=== PATIENT | male | born 1955 | race Caucasian/White ===

== ENCOUNTER 2023-09-07 07:34 | Day surgery (SDC) | payer MEDICARE, BC ==
[2023-09-07] VITALS (15 sets, daily range): BP systolic 124–146; BP diastolic 61–78; PULSE 58–74; TEMP 97.3–97.7
[~2023-09-07] VITALS: Ht 172.7 cm; Wt 101.0 kg
[~2023-09-07 07:34] MED LIST: Celecoxib 200 MG CAP PO SCH; Famotidine 20 MG TAB PO SCH; LR 1,000 ML IV SCH; Pregabalin 150 MG CAP PO SCH; oxyCODONE ER (12-HR) 20 MG TAB PO SCH
[2023-09-07] MEDS ORDERED: Tranexamic Acid 1,000 MG/10 ML VIAL ONE (08:41)
[2023-09-07] MEDS ORDERED: Lidocaine PF 2% (20 MG/ML) 5 ML VIAL ONE (08:41)
[2023-09-07] MEDS ORDERED: fentaNYL 50 MCG/ML 2 ML VIAL ONE (08:42)
[2023-09-07] MEDS ORDERED: Midazolam 2 MG/2 ML VIAL ONE (08:42)
[2023-09-07] MEDS ORDERED: HCTZ 25MG TAB25 MG PO (09:26)
[2023-09-07] MEDS ORDERED: COREG12.5 MG PO (09:26)
[2023-09-07] MEDS ORDERED: AVAPRO TAB150 MG/TAB PO (09:27)
[2023-09-07] MEDS ORDERED: ALDACTONE 25MG25 M1 PO (09:27)
[2023-09-07] MEDS ORDERED: NORVASC 10MG10 MG PO (09:29)
[2023-09-07] MEDS ORDERED: LIPITOR20 MG PO (09:30)
[2023-09-07] MEDS ORDERED: ASPIRIN E.C. 8181 MG PO (09:31)
[2023-09-07] MEDS ORDERED: PRILOSEC 20MG20 MG PO (09:31)
[2023-09-07] MEDS ORDERED: VITAMIN C500 MG PO (09:33)
[2023-09-07] MEDS ORDERED: IRON TABLETS325 MG PO (09:34)
[2023-09-07] MEDS ORDERED: FOLIC ACID 40400 MCG PO (09:35)
[2023-09-07] MEDS ORDERED: Morphine 4 MG/ML VIAL IV PRN (10:15)
[2023-09-07] MEDS ORDERED: Promethazine 50 MG/ML 1 ML VIAL IM PRN (10:15)
[2023-09-07] MEDS ORDERED: Naloxone 0.4 MG/ML VIAL IV PRN (10:15)
[2023-09-07] MEDS ORDERED: D5LR 1,000 ML IV SCH (10:15)
[2023-09-07] MEDS ORDERED: Promethazine 25 MG TAB PO PRN (10:15)
[2023-09-07] MEDS ORDERED: Magnes Hydrox (MOM) 80 MG/ML 30 ML CUP PO PRN (10:15)
[2023-09-07] MEDS ORDERED: oxyCODONE 5 MG TAB PO PRN (10:15)
[2023-09-07] MEDS ORDERED: traMADol 50 MG TAB PO PRN (10:15)
[2023-09-07] MEDS ORDERED: Meperidine 50 MG/ML 1 ML VIAL IV PRN (10:30)
[2023-09-07] MEDS ORDERED: HYDROmorphone 1 MG/1 ML SYRINGE [PACU/SDC ONLY] IV PRN (10:30)
[2023-09-07] MEDS ORDERED: hydrALAZINE 20 MG/ML 1 ML VIAL IV PRN (10:30)
[2023-09-07] MEDS ORDERED: Ondansetron 4 MG/2 ML VIAL IV PRN (10:30)
[2023-09-07] MEDS ORDERED: fentaNYL 50 MCG/ML 1 ML SYRINGE/VIAL [PACU/SDC ONLY] IV PRN (10:30)
[2023-09-07] MEDS ORDERED: ePHEDrine 50 MG/ML VIAL ONE (10:47)
[2023-09-07] MEDS ORDERED: Topical Skin Adhesive 1 EACH (1 ML) TOP ONE (11:18)
--- NOTE | 2023-09-07 12:10 | NUR ---
pt admitted to room from pacu, at bedside. vss. pt denies pain. dressing to right hip is cdi. med rec and admission assessment complete. oriented pt to room. call light in reach. no needs at this time.
[2023-09-07] MEDS ORDERED: Acetaminophen 500 MG TAB PO SCH (14:00)
[2023-09-07] MEDS ORDERED: dexAMETHasone 10 MG/ML VIAL IV SCH (16:00)
[2023-09-07] MEDS ORDERED: ceFAZolin 2 G in Water For Injection,Sterile 20 ML IV SCH (16:00)
[2023-09-07] MEDS ORDERED: Carvedilol 6.25 MG TAB PO SCH (17:00)
--- NOTE | 2023-09-07 20:45 | NUR ---
PT A&O X4 LAYING IN BED. VSS, PT ON 2L @ HS. DRSG TO RT HIP CDI. PT RATING PAIN 05/16, GAVE SCHEDULED TYLENOL. INT TO RT AC PATENT. BLE DAVID & SCD ON. PT DENYING OTHER NEEDS AT THIS TIME. CALL LIGHT IN REACH
[2023-09-07] MEDS ORDERED: Sennosides/Docusate 8.6-50 MG TAB PO SCH (21:00)
[2023-09-08 03:29] VITALS: BP 146/76; PULSE 70; TEMP 97.7
[2023-09-08 03:59] VITALS: BP_SYST 146
--- NOTE | 2023-09-08 05:56 | NUR ---
PT RESTING IN BED W/ UNLABORED RESP. RATING PAIN 10 TO RT HIP, GAVE SCHEDULED TYLENOL. PT DENIES ICEPACK THIS MORNING. CALL LIGHT IN REACH
[2023-09-08 06:51] LABS: HEMATOCRIT 38.4 % (42.0-52.0); HEMOGLOBIN 13.2 g/dl (13.5-18.0)
[2023-09-08] MEDS ORDERED: Omeprazole 20 MG **** subs to Pantoprazole 40 MG PO SCH (07:00)
[2023-09-08 07:38] VITALS: BP 144/77; PULSE 64; TEMP 97.7
--- NOTE | 2023-09-08 07:50 | NUR ---
pt a&ox4 sitting up in recliner eating breakfast. vss. pt denies pain. right hip dressing is cdi. teds and scds to ble. INT to right ac patent. pt denies needs at this time. call light in reach.
[2023-09-08] MEDS ORDERED: ASPI325T6 PO (08:30)
[2023-09-08] MEDS ORDERED: CELEBREX 200MG200 MG PO (08:30)
[2023-09-08] MEDS ORDERED: ROXICODONE 55 MG/TAB PO (08:30)
[2023-09-08] MEDS ORDERED: TYLENOL 500MG500 MG PO (08:31)
[2023-09-08] MEDS ORDERED: ULTRAM 50MG TAB50 MG PO (08:31)
[2023-09-08] MEDS ORDERED: Atorvastatin 20 MG TAB PO SCH (09:00)
[2023-09-08] MEDS ORDERED: hydroCHLOROthiazide 25 MG TAB PO SCH (09:00)
[2023-09-08] MEDS ORDERED: IRBESARTAN 150 MG PO SCH (09:00)
[2023-09-08] MEDS ORDERED: Celecoxib 200 MG CAP PO SCH (09:00)
[2023-09-08] MEDS ORDERED: Spironolactone 25 MG TAB PO SCH (09:00)
[2023-09-08] MEDS ORDERED: amLODIPine 10 MG TAB PO SCH (09:00)
[2023-09-08] MEDS ORDERED: Losartan 50 MG TAB PO SCH (09:00)
[2023-09-08] MEDS ORDERED: SUBS TO LOSARTAN PO SCH (09:00)
[2023-09-08 09:10] VITALS: BP_SYST 144
--- NOTE | 2023-09-08 09:12 | NUR ---
Social work student met with patient to discuss discharge planning. Patient lives in [place] with Ayala (Bardley) (ph# [phone]) and sees Dr. Anthony Bhatti for primary care. Patient uses [facility] in [place] to get medications with no difficulties. Patient uses [employer] for medication and Medicare and [employer] as secondary. Patient uses CPAP and is independent with ADLS. Patient was not interested in completing DPOA at this time. Patient has outpatient physical therapy scheduled at [facility] in [place]. Patient plans to return home to [place] at time of discharge. Discharge plan: home with outpatient PT
--- NOTE | 2023-09-08 10:02 | NUR ---
Social work student faxed discharge orders to [facility] for outpatient physical therapy.
--- NOTE | 2023-09-08 10:45 | NUR ---
INT discontinued. discharge instructions given to pt and , all questions answered. pt ambulating in halls without difficult. no pain reported. pt transported to personal vehicle by wheelchair.
== END 2023-09-08 10:48 | disposition home or self-care (01) ==
LOC: SDCO 07:34 → SURG 12:12 → SDCO 14:15
PROVIDERS: Physician Assistant
DX: M16.11 Unilateral primary osteoarthritis, right hip (principal); G47.33 Obstructive sleep apnea (adult) (pediatric); Z95.1 Presence of aortocoronary bypass graft
CPT/HCPCS: OP; A6197; A9284; C1713; C1776; J0360; J0688; J0690; J1100; J2250; J2704; J3010; J7120; J7121